=== PATIENT | male | born 1970 | race Caucasian/White ===

== ENCOUNTER 2016-12-19 10:15 | Emergency (ER) | payer OTHER ==
[2016-12-19 10:19] VITALS: RESP 18; BMI 28.2
--- NOTE | 2016-12-19 10:54 | C.PDOC ---
History Of Present Illness 46 year old patient, with a past medical history of chronic kidney disease, hypercholesterolemia, and kidney stones, presents to the ED complaining of left flank pain for the past 3 days. Patient also complains of dysuria. He denies any fever, chills, or vomiting. Patient notes he was sent here for further evaluation by his PMD. Time Seen by Provider: 12/19/16 10:46 Chief Complaint (Nursing): Back Pain History Per: Patient History/Exam Limitations: no limitations Onset/Duration Of Symptoms: Days (3) Current Symptoms Are (Timing): Still Present Quality Of Discomfort: "Pain" Severity: Mild Pain Scale Rating Of: 3 Associated Symptoms: None Exacerbating Factor(s): Nothing Recent travel outside of the [place]: No Past Medical History Reviewed: Historical Data, Nursing Documentation, Vital Signs Vital Signs: Last Vital Signs Temp 98.7 F 12/19/16 13:32 Pulse 63 12/19/16 13:32 Resp 18 12/19/16 13:32 BP 123/73 12/19/16 13:32 Pulse Ox 99 12/20/16 11:15 - Medical History PMH: Hypercholesterolemia, Kidney Stones, Chronic Kidney Disease - [facility] Procedures APPLICATION OF SPLINT (07/06/13) OTHER LOCAL DESTRUC SKIN (05/05/13) Family History: States: Unknown Family Hx - Social History Hx Tobacco Use: No Hx Alcohol Use: No Hx Substance Use: No - Immunization History Hx Tetanus Toxoid Vaccination: No Hx Influenza Vaccination: Yes (2016) Hx Pneumococcal Vaccination: No Review Of Systems Except As Marked, All Systems Reviewed And Found Negative. Constitutional: Negative for: Fever, Chills Gastrointestinal: Negative for: Vomiting Genitourinary: Positive for: Dysuria Musculoskeletal: Positive for: Other (left flank pain) Physical Exam - Physical Exam Appears: Non-toxic, No Acute Distress Skin: Warm, Dry Head: Atraumatic, Normacephalic Eye(s): bilateral: Normal Inspection, PERRL, EOMI Neck: Normal ROM, Supple Chest: Symmetrical Cardiovascular: Rhythm Regular Respiratory: Normal Breath Sounds, No Rales, No Rhonchi, No Wheezing Gastrointestinal/Abdominal: Soft, No Tenderness, No Guarding, No Rebound Back: CVA Tenderness (left), No Vertebral Tenderness, No Paraspinal Tenderness Extremity: Normal ROM Neurological/Psych: Oriented x3, Normal Speech, Normal Cognition, Normal Motor, Normal Sensation Gait: Steady ED Course And Treatment - Laboratory Results Result Diagrams: 12/19/16 10:59 12/19/16 10:59 O2 Sat by Pulse Oximetry: 99 (room air) Pulse Ox Interpretation: Normal - CT Scan/US Abdomen/Pelvis CT Other Rad Studies (CT/US): Read By Radiologist (Anai Duque MD), Radiology Report Reviewed CT/US Interpretation: PROCEDURE: CT Abdomen and Pelvis without Oral or IV contrast. HISTORY: left flank pain, hx kidney stones. COMPARISON: None. TECHNIQUE: Contiguous axial images of the abdomen and pelvis. No oral or IV contrast administered. Coronal and Sagittal reformats generated and reviewed. Radiation dose: Total exam DLP = 758.51 mGy-cm. This CT exam was performed using one or more of the following dose reduction techniques: Automated exposure control, adjustment of the mA and/or kV according to patient size, and/ or use of iterative reconstruction technique. FINDINGS: There is limited evaluation of the solid organs without the administration of IV contrast. LOWER THORAX: No visible consolidation, pleural effusion, or pneumothorax. LIVER: Unremarkable unenhanced appearance. GALLBLADDER AND BILE DUCTS: Unremarkable unenhanced appearance. PANCREAS: Unremarkable unenhanced appearance. SPLEEN: Unremarkable unenhanced appearance. ADRENALS: Unremarkable unenhanced appearance. KIDNEYS AND URETERS: No hydronephrosis or obstructing renal calculus. Nonobstructing 2 mm right lower pole renal calculus. BLADDER: The urinary bladder appears unremarkable. REPRODUCTIVE: Unremarkable. APPENDIX: Dilated appendix measuring up to approximately 9 mm in diameter. No significant periappendiceal inflammatory changes evident. BOWEL: The stomach is nondistended. Lack of oral contrast limits evaluation for bowel pathology. The bowel loops appear within normal limits of caliber without evidence of intestinal obstruction. PERITONEUM: No significant free fluid. No definite free air. LYMPH NODES: No bulky lymphadenopathy identified. VASCULATURE: No aortic aneurysm. BONES: No acute osseous abnormality is detected. OTHER FINDINGS: Tiny fat containing umbilical hernia. IMPRESSION: Dilated appendix measuring up to 9 mm in diameter. No significant periappendiceal inflammatory changes. Correlate with physical exam as well as white count in order to assess for possibility of appendicitis. Progress Note: Plan: Abdomen/Pelvic CT, Labs Medical Decision Making Medical Decision Making: pt with no abdominal pain on exam, soft, nd, nt. pt to be given results of ct scan and labs, f/u pmd and advise to return to ER josé miguel if pain worsens, fever develops, nausea, vomiting, diarrhea or any other concerns. pt declines iv fluids, po or iv pain medication for taoist reasons. Disposition Counseled Patient/Family Regarding: Studies Performed, Diagnosis, Need For Followup - Disposition Referrals: Dalton Holland Jr., MD [Staff Provider] - Kashmir Lucero MD [Staff Provider] - Disposition: HOME/ ROUTINE Disposition Time: 13:30 Condition: STABLE Additional Instructions: Follow up with Dr Lucero and also with Dr Theodore (urology) in the next few days. Return to ER immediately for any worse pain, fever, chills, nausea, vomiting or any other concerns. Instructions: Acute Hematuria (ED), Acute Abdominal Pain (ED), Abdominal Pain ( ED) Forms: General Discharge Instructions - Clinical Impression Clinical Impression: Abdominal pain, Hematuria - [place] / [employer] / Resident Statement MD/DO has reviewed & agrees with the documentation as recorded. - Scribe Statement The provider has reviewed the documentation as recorded by the Scribe Elaine Pablo All medical record entries made by the Scribe were at my direction and personally dictated by me. I have reviewed the chart and agree that the record accurately reflects my personal performance of the history, physical exam, medical decision making, and the department course for this patient. I have also personally directed, reviewed, and agree with the discharge instructions and disposition.
[2016-12-19 11:03] LABS: BASO # 0.1 K/uL (0.0-0.2); BASO % 1.6 % (0.0-2.0); EOS # 0.2 K/uL (0.0-0.7); EOS % 4.1 % (0.0-4.0); HEMATOCRIT 45.6 % (35.0-51.0); LYMPH # 1.5 K/uL (1.0-4.3); LYMPH % 28.9 % (20.0-40.0); MEAN CELL VOLUME 80.6 fL (80.0-94.0); MEAN CORPUSCULAR HEMOGLOBIN 27.2 pg (27.0-31.0); MEAN CORPUSCULAR HGB CONC 33.7 g/dL (33.0-37.0); MEAN PLATELET VOLUME 10.2 fL (7.2-11.7); MONO # 0.4 K/uL (0.0-0.8); MONO % 6.9 % (0.0-10.0); RED CELL DISTRIBUTION WIDTH 12.9 % (11.5-14.5); WHITE BLOOD COUNT 5.2 K/uL (4.8-10.8)
[2016-12-19 11:10] LABS: RBC URINE 14 /hpf (0-3); URINE BILIRUBIN NEGATIVE (NEGATIVE); URINE BLOOD 2+ (NEGATIVE); URINE COLOR Yellow (YELLOW); URINE GLUCOSE (UA) NORMAL (Normal); URINE KETONE NEGATIVE (NEGATIVE); URINE LEUKOCYTE ESTERASE NEG Leu/uL (Negative); URINE PROTEIN NEGATIVE (NEGATIVE); URINE UROBILINOGEN NORMAL mg/dL (0.2-1.0); WBC URINE < 1 /hpf (0-5)
[2016-12-19 11:18] LABS: CHLORIDE 99 mmol/L (98-107); POTASSIUM 4.3 mmol/L (3.6-5.2); SODIUM 136 mmol/L (132-148)
[2016-12-19 11:20] LABS: ALB/GLOB RATIO 1.4 (1.0-2.1); ALKALINE PHOSPHATASE 53 U/L (38-126); ALT/SGPT 49 U/L (21-72); AST/SGOT 30 U/L (17-59); BILIRUBIN,TOTAL 0.6 mg/dL (0.2-1.3); BLOOD UREA NITROGEN 17 mg/dL (9-20); CARBON DIOXIDE 25 mmol/L (22-30); GFR AFRICAN-AMERICAN > 60; TOTAL PROTEIN 7.4 g/dL (6.3-8.3)
[2016-12-19 11:21] LABS: CALCIUM 8.5 mg/dl (8.6-10.4); GLUCOSE,RANDOM 106 mg/dL (75-110)
--- NOTE | 2016-12-19 12:09 | CT ---
PROCEDURE: CT Abdomen and Pelvis without Oral or IV contrast. HISTORY: left flank pain, hx kidney stones COMPARISON: None. TECHNIQUE: Contiguous axial images of the abdomen and pelvis. No oral or IV contrast administered. Coronal and Sagittal reformats generated and reviewed. Radiation dose: Total exam DLP = 758.51 mGy-cm. This CT exam was performed using one or more of the following dose reduction techniques: Automated exposure control, adjustment of the mA and/or kV according to patient size, and/or use of iterative reconstruction technique. FINDINGS: There is limited evaluation of the solid organs without the administration of IV contrast. LOWER THORAX: No visible consolidation, pleural effusion, or pneumothorax. LIVER: Unremarkable unenhanced appearance. GALLBLADDER AND BILE DUCTS: Unremarkable unenhanced appearance. PANCREAS: Unremarkable unenhanced appearance. SPLEEN: Unremarkable unenhanced appearance. ADRENALS: Unremarkable unenhanced appearance. KIDNEYS AND URETERS: No hydronephrosis or obstructing renal calculus. Nonobstructing 2 mm right lower pole renal calculus. BLADDER: The urinary bladder appears unremarkable. REPRODUCTIVE: Unremarkable. APPENDIX: Dilated appendix measuring up to approximately 9 mm in diameter. No significant periappendiceal inflammatory changes evident. BOWEL: The stomach is nondistended. Lack of oral contrast limits evaluation for bowel pathology. The bowel loops appear within normal limits of caliber without evidence of intestinal obstruction. PERITONEUM: No significant free fluid. No definite free air. LYMPH NODES: No bulky lymphadenopathy identified. VASCULATURE: No aortic aneurysm. BONES: No acute osseous abnormality is detected. OTHER FINDINGS: Tiny fat containing umbilical hernia. IMPRESSION: Dilated appendix measuring up to 9 mm in diameter. No significant periappendiceal inflammatory changes. Correlate with physical exam as well as white count in order to assess for possibility of appendicitis.
[2016-12-19 12:30] VITALS: O2SAT 99
[2016-12-19 13:33] VITALS: BP 123/73; PULSE 63; TEMP 98.7
== END 2016-12-19 13:45 | disposition home or self-care (01) ==
LOC: C.ER 10:15
DX: R10.9 Unspecified abdominal pain (principal); R31.9 Hematuria, unspecified

== ENCOUNTER 2018-05-17 14:44 | Emergency (ER) | payer OTHER ==
[2018-05-17 14:45] VITALS: BMI 29.0
[2018-05-17] MEDS ORDERED: Sodium Chloride 0.9% 1,000 ML IV ONE (15:09)
[2018-05-17 15:29] LABS: BASO # 0.1 K/uL (0.0-0.2); BASO % 1.3 % (0.0-2.0); EOS # 0.1 K/uL (0.0-0.7); EOS % 2.5 % (0.0-4.0); LYMPH % 32.1 % (20.0-40.0); MEAN CELL VOLUME 81.1 fL (80.0-94.0); MEAN CORPUSCULAR HEMOGLOBIN 27.6 pg (27.0-31.0); MEAN CORPUSCULAR HGB CONC 34.1 g/dL (33.0-37.0); MEAN PLATELET VOLUME 10.5 fL (7.2-11.7); MONO # 0.5 K/uL (0.0-0.8); MONO % 7.6 % (0.0-10.0); NEUT # 3.4 K/uL (1.8-7.0); NEUT % 56.5 % (50.0-75.0); NRBC % 0.1 % (0.0-2.0); RBC 5.42 Mil/uL (4.40-5.90); RED CELL DISTRIBUTION WIDTH 13.3 % (11.5-14.5); WHITE BLOOD COUNT 6.1 K/uL (4.8-10.8)
[2018-05-17 15:51] LABS: BLOOD UREA NITROGEN 14 mg/dL (9-20); CALCIUM 9.4 mg/dl (8.6-10.4); GFR NON-AFRICAN AMERICAN > 60
[2018-05-17 16:01] LABS: ALB/GLOB RATIO 1.5 (1.0-2.1); ALBUMIN 4.6 g/dL (3.5-5.0); ALT/SGPT 45 U/L (21-72); AST/SGOT 58 U/L (17-59); CK-MB 3.39 ng/mL (0.0-3.38)
--- NOTE | 2018-05-17 16:10 | CT ---
Date of service: 05/17/2018 PROCEDURE: CT HEAD WITHOUT CONTRAST. HISTORY: headache, persistent left ear pain, dizziness COMPARISON: None available. TECHNIQUE: Axial computed tomography images were obtained through the head/brain without intravenous contrast. Radiation dose: Total exam DLP = 1092.34 mGy-cm. This CT exam was performed using one or more of the following dose reduction techniques: Automated exposure control, adjustment of the mA and/or kV according to patient size, and/or use of iterative reconstruction technique. FINDINGS: HEMORRHAGE: No intracranial hemorrhage. BRAIN: No mass effect or edema. No atrophy or chronic microvascular ischemic changes.Normal rooney-white matter differentiation and density are appreciated throughout the cerebrum and cerebellum with the brainstem appearing unremarkable as well. There is no mass effect. There is no suspicious extra-axial fluid collection and the midline brain anatomy appears diffusely unremarkable. VENTRICLES: Unremarkable. No hydrocephalus. CALVARIUM: Unremarkable. PARANASAL SINUSES: Unremarkable as visualized. No significant inflammatory changes. MASTOID AIR CELLS: Unremarkable as visualized. No inflammatory changes. OTHER FINDINGS: None. IMPRESSION: Unremarkable noncontrast CT of the Head.
--- NOTE | 2018-05-17 16:26 | C.PDOC ---
History Of Present Illness 48 y/o male presents to ED complaining of left-sided chest pain that started 2 hours prior to arrival. States that while he was walking, he felt a squeezing pain but did not radiate anywhere. Patient also complains of left ear pain and dizziness that is both room spinning and lightheadedness. Patient was recently seen by Dr. Grant who prescribed him antibiotics and Claritin, but patient still has ear pain. Denies SOB, visual changes, facial droop, slurred speech, extremity weakness, or gait changes. Time Seen by Provider: 05/17/18 14:46 Chief Complaint (Nursing): Chest Pain History Per: Patient History/Exam Limitations: no limitations Onset/Duration Of Symptoms: Hrs Current Symptoms Are (Timing): Still Present Past Medical History Reviewed: Historical Data, Nursing Documentation, Vital Signs Vital Signs: Last Vital Signs Temp 97.3 F L 05/17/18 14:45 Pulse 75 05/17/18 14:45 Resp 20 05/17/18 14:45 BP 130/81 05/17/18 14:45 Pulse Ox 99 05/17/18 14:45 - Medical History PMH: Gastritis, HTN, Hypercholesterolemia, Kidney Stones, Chronic Kidney Disease Surgical History: Endoscopy Denies: Pacemaker - [facility] Procedures APPLICATION OF SPLINT (07/06/13) OTHER LOCAL DESTRUC SKIN (05/05/13) Family History: States: No Known Family Hx - Social History Hx Tobacco Use: No Hx Alcohol Use: No Hx Substance Use: No - Immunization History Hx Tetanus Toxoid Vaccination: No Hx Influenza Vaccination: Yes (2017) Hx Pneumococcal Vaccination: No Review Of Systems Eyes: Negative for: Vision Change ENT: Positive for: Ear Pain (left) Cardiovascular: Positive for: Chest Pain Respiratory: Negative for: Shortness of Breath Neurological: Positive for: Dizziness. Negative for: Weakness, Change in Speech, Other (Facial droop) Physical Exam - Physical Exam Appears: Non-toxic, No Acute Distress Skin: Warm, Dry Head: Atraumatic Eye(s): bilateral: Normal Inspection, PERRL, EOMI Ear(s): Bilateral: Normal Oral Mucosa: Moist Neck: Supple Cardiovascular: Rhythm Regular, No Murmur Respiratory: Normal Breath Sounds, No Rales, No Rhonchi, No Wheezing Gastrointestinal/Abdominal: Soft, No Tenderness Neurological/Psych: Oriented x3, Normal Speech, Other (No focal deficits) ED Course And Treatment - Laboratory Results Result Diagrams: 05/17/18 15:21 05/17/18 15:21 ECG Rhythm: Sinus Rhythm (Normal) Interpretation Of ECG: Normal axis, no acute ST/T wave changes. Rate From EC O2 Sat by Pulse Oximetry: 99 (RA) Pulse Ox Interpretation: Normal - CT Scan/US CT Head Other Rad Studies (CT/US): Read By Radiologist, Radiology Report Reviewed CT/US Interpretation: FINDINGS: HEMORRHAGE: No intracranial hemorrhage. BRAIN: No mass effect or edema. No atrophy or chronic microvascular ischemic changes.Normal rooney-white matter differentiation and density are appreciated throughout the cerebrum and cerebellum with the brainstem appearing unremarkable as well. There is no mass effect. There is no suspicious extra-axial fluid collection and the midline brain anatomy appears diffusely unremarkable. VENTRICLES: Unremarkable. No hydrocephalus. CALVARIUM: Unremarkable. PARANASAL SINUSES: Unremarkable as visualized. No significant inflammatory changes. MASTOID AIR CELLS: Unremarkable as visualized. No inflammatory changes. OTHER FINDINGS: None. IMPRESSION: Unremarkable noncontrast CT of the Head. Progress Note: CT Head and labs ordered. IV fluids administered. Disposition Counseled Patient/Family Regarding: Studies Performed, Diagnosis, Need For Followup, Rx Given - Disposition Referrals: Ildefonso Lucero MD [Medical Doctor] - Hubert Grant MD [Staff Provider] - Disposition: HOME/ ROUTINE Disposition Time: 18:25 Condition: STABLE Additional Instructions: FOLLOW UP WITH YOUR DOCTOR IN 1-2 DAYS, AND WITH ENT SPECIALIST WITHIN 1 WEEK RETURN TO ER IF SYMPTOMS WORSEN Prescriptions: Ibuprofen [Motrin Tab] 600 mg PO Q6 PRN #30 tab PRN Reason: fever/pain Instructions: Chest Pain That Is Not Caused by the Heart (DC) Forms: [employer] (Sinhala) Print Language: SOUTH SUDANESE - Clinical Impression Clinical Impression: Non-cardiac chest pain, Chronic left ear pain, Dizziness - Scribe Statement The provider has reviewed the documentation as recorded by the Frankie Brian Provider Attestation: All medical record entries made by the Frankie were at my direction and personally dictated by me. I have reviewed the chart and agree that the record accurately reflects my personal performance of the history, physical exam, medical decision making, and the department course for this patient. I have also personally directed, reviewed, and agree with the discharge instructions and disposition.
[2018-05-17 16:33] VITALS: RESP 18
[2018-05-17 18:03] VITALS: BP 123/74; PULSE 72; TEMP 98.4
[2018-05-17 18:21] LABS: CK-MB 3.06 ng/mL (0.0-3.38)
[2018-05-17 18:29] VITALS: O2SAT 99
--- NOTE | 2018-05-18 12:45 | CARD ---
APPROVED REPORT Date of service: 05/17/2018 EKG Measurement Heart [id number] <Conclusion> Normal sinus rhythm Normal ECG
== END 2018-05-17 18:41 | disposition home or self-care (01) ==
LOC: C.ER 14:44
DX: R07.89 Other chest pain (principal); R42 Dizziness and giddiness; H92.02 Otalgia, left ear; E78.00 Pure hypercholesterolemia, unspecified; I12.9 Hypertensive chronic kidney disease with stage 1 through stage 4 chronic kidney disease, or unspecified chronic kidney disease; N18.9 Chronic kidney disease, unspecified; Z87.442 Personal history of urinary calculi

== ENCOUNTER 2018-07-17 03:39 | Observation (INO) | payer OTHER ==
[2018-07-17 03:39] VITALS: BMI 29.0
--- NOTE | 2018-07-17 03:50 | C.PDOC ---
History Of Present Illness 48 year old male presents to the ED c/o epigastric abdominal pain associated with nausea since yesterday. Patient reports pain is sharp, cramping occasional burning. Patient denies fever, chills, vomit, diarrhea, dysuria, hematuria, back pain, rash. Time Seen by Provider: 07/17/18 03:49 History Per: Patient History/Exam Limitations: no limitations Onset/Duration Of Symptoms: Days Current Symptoms Are (Timing): Still Present Context: Other Severity: Moderate Pain Scale Rating Of: 4 Location Of Pain/Discomfort: Epigastric Radiation Of Pain To:: None Quality Of Discomfort: Dull, Aching Associated Symptoms: denies: Fever, Chills, Nausea Exacerbating Factors: denies: Cough Alleviating Factors: None Last Bowel Movement: Today Recent travel outside of the [place]: No Additional History Per: Patient Past Medical History Reviewed: Historical Data, Nursing Documentation, Vital Signs - Medical History PMH: Gastritis, HTN, Hypercholesterolemia, Kidney Stones, Chronic Kidney Disease Surgical History: Endoscopy Denies: Pacemaker - [facility] Procedures APPLICATION OF SPLINT (07/06/13) OTHER LOCAL DESTRUC SKIN (05/05/13) Family History: States: No Known Family Hx - Social History Hx Tobacco Use: No Hx Alcohol Use: No Hx Substance Use: No - Immunization History Hx Tetanus Toxoid Vaccination: No Hx Influenza Vaccination: Yes (2017) Hx Pneumococcal Vaccination: No Review Of Systems Constitutional: Negative for: Fever, Chills Cardiovascular: Negative for: Chest Pain Respiratory: Negative for: Shortness of Breath Gastrointestinal: Positive for: Abdominal Pain. Negative for: Nausea, Vomiting Genitourinary: Negative for: Dysuria Musculoskeletal: Negative for: Back Pain Skin: Negative for: Rash Neurological: Negative for: Weakness Psych: Positive for: Anxiety Physical Exam - Physical Exam Appears: Non-toxic Skin: Warm, Dry Oral Mucosa: Moist Chest: Symmetrical Cardiovascular: Rhythm Regular Respiratory: No Rales, No Rhonchi, No Wheezing Gastrointestinal/Abdominal: Soft, Tenderness (midepigastric), Distention Back: Normal Inspection Extremity: Normal ROM Extremity: Bilateral: Atraumatic Neurological/Psych: Oriented x3 Gait: Steady ED Course And Treatment - Laboratory Results Result Diagrams: 07/17/18 04:10 07/17/18 04:10 O2 Sat by Pulse Oximetry: 97 (ON RA) Pulse Ox Interpretation: Normal - CT Scan/US CT abd/pelvis Other Rad Studies (CT/US): Read By Radiologist, Radiology Report Reviewed CT/US Interpretation: CT SCAN OF THE ABDOMEN AND PELVIS WITH CONTRAST. CLINICAL HISTORY: Mid epigastric pain. TECHNIQUE: Multiple axial and coronal CT images were obtained through the abdomen and pelvis after administration of intravenous contrast material. COMMENTS: Appendix is enlarged measuring 1.2 cm. Diffuse thickening and enhancement of the wall of the appendix. Prominent surrounding inflammatory fat stranding. The liver is of uniform attenuation without mass or defect. There is no intra or extrahepatic biliary ductal dilatation. The spleen is normal. The gallbladder is within normal limits. The pancreas is of normal contour and attenuation characteristics. There is no evidence of adrenal mass. Both kidneys demonstrate prompt and equal nephrograms. The kidneys are normal in size, shape and configuration. There is no evidence of renal or ureteral mass. No renal or ureteral calculi are identified. There is no hydroureter or hydronephrosis. There is no bowel wall thickening. No evidence for small or large bowel obstruction. There is no evidence of abdominal ascites or lymphadenopathy. There is no evidence of intrinsic or extrinsic bladder mass. There is no pelvic ascites or lymphadenopathy. Images of the lung bases show no evidence of pleural or parenchymal mass. There are no pleural effusions. The bony structures are free of lytic or blastic lesions. Bilateral basilar subsegmental atelectatic pulmonary changes. IMPRESSION: Uncomplicated acute appendicitis. Thank you for your kind referral of this patient. . Electronically signed on Jul 17, 2018 6:20:28 AM EST by: Ana Escalante M.D., Certified by JOSE, MSK, Neuroradiology Progress Note: Plan: - Labs. - Protonix 40 mg IVP. - IV fluids. - Toradol 30 mg IVP. - Zofran 4 mg IVP. - UA Disposition Counseled Patient/Family Regarding: Studies Performed, Diagnosis, Need For Followup - Disposition Referrals: Babatunde Lyman MD [Staff Provider] - Disposition: AGAINST MEDICAL ADVICE Disposition Time: 03:49 Condition: FAIR Instructions: Appendicitis in Adults - Clinical Impression Clinical Impression: Acute appendicitis - Scribe Statement The provider has reviewed the documentation as recorded by the Scribe Jarod Cortez All medical record entries made by the Scribe were at my direction and personally dictated by me. I have reviewed the chart and agree that the record accurately reflects my personal performance of the history, physical exam, medical decision making, and the department course for this patient. I have also personally directed, reviewed, and agree with the discharge instructions and disposition. Physician Patient Turnover Patient Signed Over To: Anita Paez (') Handoff Comments: pending disposition
[2018-07-17] MEDS ORDERED: Sodium Chloride 0.9% 1,000 ML IV ONE (03:53)
[2018-07-17 04:14] LABS: BASO # 0.1 K/uL (0.0-0.2); BASO % 1.4 % (0.0-2.0); EOS # 0.2 K/uL (0.0-0.7); EOS % 2.4 % (0.0-4.0); HEMOGLOBIN 15.1 g/dL (12.0-18.0); LYMPH # 1.6 K/uL (1.0-4.3); LYMPH % 23.1 % (20.0-40.0); MEAN CELL VOLUME 81.9 fL (80.0-94.0); MEAN CORPUSCULAR HEMOGLOBIN 27.9 pg (27.0-31.0); MEAN CORPUSCULAR HGB CONC 34.1 g/dL (33.0-37.0); MEAN PLATELET VOLUME 9.9 fL (7.2-11.7); MONO # 0.5 K/uL (0.0-0.8); MONO % 7.3 % (0.0-10.0); NEUT # 4.6 K/uL (1.8-7.0); NEUT % 65.8 % (50.0-75.0); RBC 5.42 Mil/uL (4.40-5.90); RED CELL DISTRIBUTION WIDTH 13.5 % (11.5-14.5)
[2018-07-17 04:22] LABS: PROTHROMBIN TIME 10.9 SECONDS (9.7-12.2); URINE BILIRUBIN NEGATIVE (NEGATIVE); URINE CLARITY Clear (Clear); URINE COLOR Straw (YELLOW); URINE GLUCOSE (UA) NORMAL (Normal); URINE LEUKOCYTE ESTERASE NEG Leu/uL (Negative); URINE PROTEIN NEGATIVE (NEGATIVE); URINE UROBILINOGEN NORMAL mg/dL (0.2-1.0)
[2018-07-17 04:24] LABS: URINE BLOOD NEGATIVE (NEGATIVE)
[2018-07-17 04:30] LABS: ALB/GLOB RATIO 1.6 (1.0-2.1); ALBUMIN 4.3 g/dL (3.5-5.0); ALT/SGPT 60 U/L (21-72); AST/SGOT 44 U/L (17-59); BLOOD UREA NITROGEN 11 mg/dL (9-20); CALCIUM 8.8 mg/dl (8.6-10.4); GFR NON-AFRICAN AMERICAN > 60; LIPASE 49 U/L (23-300)
[2018-07-17] MEDS ORDERED: Iodixanol 320 MG/ML 100 ML BOTTLE IV ONE (05:13)
[2018-07-17] MEDS ORDERED: Piperacillin/Tazobact 3.375 GM in Sodium Chloride 100 ML IVPB STA (06:24)
[2018-07-17] MEDS ORDERED: Piperacillin/Tazobact 3.375 gm 100 ML IVPB ONE (06:36)
--- NOTE | 2018-07-17 07:31 | CP.PCM.HP ---
History of Present Illness - History of Present Illness History of Present Illness: General Surgery Consult note for Dr. Lyman This is a 48M with a PMH of HTN and HLD, who presents with one day of abdominal pain. He reports that it started yesterday and he has been going to the bathroom often since it started however it is not diarrhea, or abnormal in color or character. He reports nausea but no vomiting. He denies any fevers or chills at home. This is the first time this has happened. Nothing makes it better or worse. He denies any SOB or chest pain, or any other systemic symptoms. CT in the ED was significant for an acute appendicitis. PMH: HTN, HLD PSH: Denies ALL: Cipro Social: Denies vices Present on Admission - Present on Admission Any Indicators Present on Admission: No Review of Systems - Review of Systems Review of Systems: 12 point review of symptoms conducted and negative except for lower abdominal pain. Past Patient History - Past Medical History & Family History Past Medical History?: Yes - Past Social History Smoking Status: Never Smoked - CARDIAC Hx Hypercholesterolemia: Yes Hx Hypertension: Yes Hx Pacemaker: No - PULMONARY Hx Respiratory Disorders: No - NEUROLOGICAL Hx Neurological Disorder: No - HEENT Hx HEENT Problems: No - RENAL Hx Chronic Kidney Disease: Yes Hx Kidney Stones: Yes - ENDOCRINE/METABOLIC Hx Endocrine Disorders: No - HEMATOLOGICAL/ONCOLOGICAL Hx Blood Disorders: No Hx Blood Transfusions: No - INTEGUMENTARY Hx Dermatological Problems: Yes Other/Comment: WARTS ON FEET - MUSCULOSKELETAL/RHEUMATOLOGICAL Hx Musculoskeletal Disorders: No - GASTROINTESTINAL Hx Gastritis: Yes - GENITOURINARY/GYNECOLOGICAL Hx Genitourinary Disorders: No - PSYCHIATRIC Hx Substance Use: No - SURGICAL HISTORY Hx Surgeries: Yes Other/Comment: WARTS REMOVED FROM FEET - ANESTHESIA Hx Anesthesia: Yes Hx Anesthesia Reactions: No Hx Malignant Hyperthermia: No Meds Allergies/Adverse Reactions: Allergies Allergy/AdvReac Type Severity Reaction Status Date / Time ciprofloxacin Allergy RASH Verified 07/17/18 03:53 Physical Exam - Constitutional Appears: Non-toxic, No Acute Distress - Head Exam Head Exam: ATRAUMATIC, NORMOCEPHALIC - Eye Exam Eye Exam: EOMI, Normal appearance - ENT Exam ENT Exam: Mucous Membranes Moist - Respiratory Exam Respiratory Exam: NORMAL BREATHING PATTERN - Cardiovascular Exam Cardiovascular Exam: +S1, +S2 - GI/Abdominal Exam GI & Abdominal Exam: Soft, Tenderness. absent: Guarding, Hernia, Rebound, Rigid Additional comments: + Rovsing sign, + Mcburny point tenderness - Neurological Exam Neurological exam: Alert, Oriented x3 - Psychiatric Exam Psychiatric exam: Normal Affect, Normal Mood - Skin Skin Exam: Dry, Intact Results - Vital Signs Recent Vital Signs: Last Vital Signs Temp 98.4 F 07/17/18 07:16 Pulse 72 07/17/18 07:16 Resp 17 07/17/18 07:16 BP 134/80 07/17/18 07:16 Pulse Ox 98 07/17/18 07:16 - Labs Result Diagrams: 07/17/18 04:10 07/17/18 04:10 Labs: Laboratory Results - last 24 hr 07/17/18 07/17/18 07/17/18 04:10 04:10 04:10 WBC 7.0 RBC 5.42 Hgb 15.1 Hct 44.4 MCV 81.9 MCH 27.9 MCHC 34.1 RDW 13.5 Plt Count 180 MPV 9.9 Neut % (Auto) 65.8 Lymph % (Auto) 23.1 [place] % (Auto) 7.3 Eos % (Auto) 2.4 Baso % (Auto) 1.4 Neut # (Auto) 4.6 Lymph # (Auto) 1.6 [place] # (Auto) 0.5 Eos # (Auto) 0.2 Baso # (Auto) 0.1 PT 10.9 INR 1.0 APTT 33 Sodium Potassium Chloride Carbon Dioxide Anion Gap BUN Creatinine Est GFR ( Amer) Est GFR (Non-Af Amer) Random Glucose Calcium Total Bilirubin AST ALT Alkaline Phosphatase Total Protein Albumin Globulin Albumin/Globulin Ratio Lipase Urine Color Straw Urine Clarity Clear Urine pH 6.0 Ur Specific [place] 1.009 Urine Protein Negative Urine Glucose (UA) Normal Urine Ketones Negative Urine Blood Negative Urine Nitrate Negative Urine Bilirubin Negative Urine Urobilinogen Normal Ur Leukocyte Esterase Neg Urine WBC (Auto) < 1 Urine RBC (Auto) 4 H 07/17/18 04:10 WBC RBC Hgb Hct MCV MCH MCHC RDW Plt Count MPV Neut % (Auto) Lymph % (Auto) [place] % (Auto) Eos % (Auto) Baso % (Auto) Neut # (Auto) Lymph # (Auto) [place] # (Auto) Eos # (Auto) Baso # (Auto) PT INR APTT Sodium 137 Potassium 3.9 Chloride 103 Carbon Dioxide 26 Anion Gap 12 BUN 11 Creatinine 0.9 Est GFR ( Amer) > 60 Est GFR (Non-Af Amer) > 60 Random Glucose 103 Calcium 8.8 Total Bilirubin 0.5 AST 44 ALT 60 Alkaline Phosphatase 69 Total Protein 7.0 Albumin 4.3 Globulin 2.7 Albumin/Globulin Ratio 1.6 Lipase 49 Urine Color Urine Clarity Urine pH Ur Specific [place] Urine Protein Urine Glucose (UA) Urine Ketones Urine Blood Urine Nitrate Urine Bilirubin Urine Urobilinogen Ur Leukocyte Esterase Urine WBC (Auto) Urine RBC (Auto) - Imaging and Cardiology CT scan - abdomen Status: Image reviewed by me CT scan - pelvis Status: Image reviewed by me Assessment & Plan - Assessment and Plan (Free Text) Assessment: 48M with uncomplicated acute appendicitis NPO IVF IV ABX Plan for OR for appendectomy Further recs per Dr. Nura Frost PGY3
[2018-07-17] MEDS ORDERED: HYDROmorphone 0.5 mg/0.5 ml ISec IVP PRN ×3 (07:36→16:22)
[2018-07-17] MEDS ORDERED: Lactated Ringer's 1,000 ML ONE (08:05)
[2018-07-17] MEDS: Lactated Ringer's 1,000 ML IV SCH ×2 (08:10→13:33)
--- NOTE | 2018-07-17 10:41 | CT ---
Date of service: 07/17/2018 PROCEDURE: CT Abdomen and Pelvis with contrast HISTORY: midepigastric pain COMPARISON: CT abdomen and pelvis without contrast performed 12/19/16 TECHNIQUE: Contrast dose: 100 mL Visipaque 320 IV Radiation dose: Total exam DLP = 1267.54 mGy-cm. This CT exam was performed using one or more of the following dose reduction techniques: Automated exposure control, adjustment of the mA and/or kV according to patient size, and/or use of iterative reconstruction technique. FINDINGS: LOWER THORAX: Mild bibasilar atelectasis. No visible pleural effusion or pneumothorax. LIVER: Unremarkable. GALLBLADDER AND BILE DUCTS: Unremarkable. PANCREAS: Unremarkable. SPLEEN: Unremarkable. ADRENALS: Unremarkable. KIDNEYS AND URETERS: The kidneys enhance symmetrically. No hydronephrosis or obstructing calculus identified. VASCULATURE: No aortic aneurysm. No atherosclerotic calcification or mural plaque present. BOWEL: Stomach is nondistended. Lack of oral contrast limits evaluation for bowel pathology. Bowel loops appear within normal limits of caliber without evidence of obstruction. APPENDIX: The mid to distal portions of the appendix appears dilated measuring approximately 1.2 cm with associated inflammatory stranding and wall enhancement; appearance consistent with acute appendicitis. PERITONEUM: No significant free fluid. No definite free air. LYMPH NODES: No bulky adenopathy identified. Sub cm mesenteric and retroperitoneal lymph nodes, nonspecific. BLADDER: Unremarkable. REPRODUCTIVE: Unremarkable. BONES: No acute osseous abnormality is detected. OTHER FINDINGS: None. IMPRESSION: The mid to distal portions of the appendix appears dilated measuring approximately 1.2 cm with associated inflammatory stranding and wall enhancement; appearance consistent with acute appendicitis. Preliminary impression was provided by [facility] ER aware of the above findings at the time of final dictation.
[2018-07-17] MEDS: Piperacillin/Tazobact 3.375 GM in Sodium Chloride 100 ML IVPB SCH ×2 (13:33→18:47)
[2018-07-17] MEDS ORDERED: Midazolam 2 MG/2 ML VIAL ONE (14:57)
[2018-07-17] MEDS ORDERED: Propofol 10 mg/ml Inj (20 ML) ONE ×2 (14:57→16:07)
[2018-07-17] MEDS ORDERED: Succinylcholine Chloride 20 mg/ml Syr (5 ml) IV ONE (15:16)
[2018-07-17] MEDS ORDERED: Neostigmine Methylsulfate 3mg/3ml Syringe IV ONE (15:16)
--- NOTE | 2018-07-17 16:17 | PCM.SURG1 ---
Surgeon's Initial Post Op Note - Surgeon's Notes Surgeon: Dr. Lyman Group Therapy Counselor: Dr. Cox PGY4 Type of Anesthesia: General Endo Pre-Operative Diagnosis: Acute Appendicitis Operative Findings: same Post-Operative Diagnosis: same Operation Performed: Laparoscopic Appendectomy Specimen/Specimens Removed: appendix Estimated Blood Loss: EBL {In ML}: 20 Blood Products Given: N/A Drains Used: No Drains Post-Op Condition: Good Date of Surgery/Procedure: 07/17/18 Time of Surgery/Procedure: 16:16
[2018-07-17] MEDS ORDERED: Lactated Ringer's 1,000 ML IV SCH (16:30)
[2018-07-17 19:46] VITALS: RESP 20
--- NOTE | 2018-07-17 20:26 | CP.PCM.DIS ---
Provider - Provider Date of Admission: 07/17/18 08:16 Attending physician: Babatunde Lyman MD Time Spent in preparation of Discharge (in minutes): 45 Hospital Course - Lab Results Lab Results: Most Recent Lab Values WBC 7.0 K/uL (4.8-10.8) 07/17/18 04:10 RBC 5.42 Mil/uL (4.40-5.90) 07/17/18 04:10 Hgb 15.1 g/dL (12.0-18.0) 07/17/18 04:10 Hct 44.4 % (35.0-51.0) 07/17/18 04:10 MCV 81.9 fL (80.0-94.0) 07/17/18 04:10 MCH 27.9 pg (27.0-31.0) 07/17/18 04:10 MCHC 34.1 g/dL (33.0-37.0) 07/17/18 04:10 RDW 13.5 % (11.5-14.5) 07/17/18 04:10 Plt Count 180 K/uL (130-400) 07/17/18 04:10 MPV 9.9 fL (7.2-11.7) 07/17/18 04:10 Neut % (Auto) 65.8 % (50.0-75.0) 07/17/18 04:10 Lymph % (Auto) 23.1 % (20.0-40.0) 07/17/18 04:10 [place] % (Auto) 7.3 % (0.0-10.0) 07/17/18 04:10 Eos % (Auto) 2.4 % (0.0-4.0) 07/17/18 04:10 Baso % (Auto) 1.4 % (0.0-2.0) 07/17/18 04:10 Neut # (Auto) 4.6 K/uL (1.8-7.0) 07/17/18 04:10 Lymph # (Auto) 1.6 K/uL (1.0-4.3) 07/17/18 04:10 [place] # (Auto) 0.5 K/uL (0.0-0.8) 07/17/18 04:10 Eos # (Auto) 0.2 K/uL (0.0-0.7) 07/17/18 04:10 Baso # (Auto) 0.1 K/uL (0.0-0.2) 07/17/18 04:10 PT 10.9 SECONDS (9.7-12.2) 07/17/18 04:10 INR 1.0 07/17/18 04:10 APTT 33 SECONDS (21-34) 07/17/18 04:10 Sodium 137 mmol/L (132-148) 07/17/18 04:10 Potassium 3.9 mmol/L (3.6-5.2) 07/17/18 04:10 Chloride 103 mmol/L (98-107) 07/17/18 04:10 Carbon Dioxide 26 mmol/L (22-30) 07/17/18 04:10 Anion Gap 12 (10-20) 07/17/18 04:10 BUN 11 mg/dL (9-20) 07/17/18 04:10 Creatinine 0.9 mg/dL (0.8-1.5) 07/17/18 04:10 Est GFR ( Amer) > 60 07/17/18 04:10 Est GFR (Non-Af Amer) > 60 07/17/18 04:10 Random Glucose 103 mg/dL (75-110) 07/17/18 04:10 Calcium 8.8 mg/dl (8.6-10.4) 07/17/18 04:10 Total Bilirubin 0.5 mg/dL (0.2-1.3) 07/17/18 04:10 AST 44 U/L (17-59) 07/17/18 04:10 ALT 60 U/L (21-72) 07/17/18 04:10 Alkaline Phosphatase 69 U/L (38-126) 07/17/18 04:10 Total Protein 7.0 g/dL (6.3-8.3) 07/17/18 04:10 Albumin 4.3 g/dL (3.5-5.0) 07/17/18 04:10 Globulin 2.7 gm/dL (2.2-3.9) 07/17/18 04:10 Albumin/Globulin Ratio 1.6 (1.0-2.1) 07/17/18 04:10 Lipase 49 U/L (23-300) 07/17/18 04:10 Urine Color Straw (YELLOW) 07/17/18 04:10 Urine Clarity Clear (Clear) 07/17/18 04:10 Urine pH 6.0 (5.0-8.0) 07/17/18 04:10 Ur Specific [place] 1.009 (1.003-1.030) 07/17/18 04:10 Urine Protein Negative mg/dL (NEGATIVE) 07/17/18 04:10 Urine Glucose (UA) Normal mg/dL (Normal) 07/17/18 04:10 Urine Ketones Negative mg/dL (NEGATIVE) 07/17/18 04:10 Urine Blood Negative (NEGATIVE) 07/17/18 04:10 Urine Nitrate Negative (NEGATIVE) 07/17/18 04:10 Urine Bilirubin Negative (NEGATIVE) 07/17/18 04:10 Urine Urobilinogen Normal mg/dL (0.2-1.0) 07/17/18 04:10 Ur Leukocyte Esterase Neg Edis/uL (Negative) 07/17/18 04:10 Urine WBC (Auto) < 1 /hpf (0-5) 07/17/18 04:10 Urine RBC (Auto) 4 /hpf (0-3) H 07/17/18 04:10 - Hospital Course Hospital Course: 48yo M with PMHx of HTN and HLD presents with acute appendicitis as confirmed by CT Abd/Pelvis. Patient was admitted to the hospital for obs and was taken to the OR and underwent laparascopic appendectomy, no complications. Post-operatively, patient able to ambulate and void freely, pain well controlled. Patient cleared for discharge home. All discharge instructions discussed with patient and in detail, who agree with plan. All questions addressed. Patient will follow up with Dr. Lyman in office in 10 days. Discharge Exam - Head Exam Head Exam: ATRAUMATIC, NORMAL INSPECTION, NORMOCEPHALIC - Eye Exam Eye Exam: EOMI, Normal appearance. absent: Scleral icterus - ENT Exam ENT Exam: Mucous Membranes Moist - Respiratory Exam Respiratory Exam: NORMAL BREATHING PATTERN. absent: Accessory Muscle Use - Cardiovascular Exam Cardiovascular Exam: absent: JVD - GI/Abdominal Exam GI & Abdominal Exam: Soft. absent: Distended, Guarding, Rebound, Rigid Additional comments: mild periincisional tenderness. Surgical incisions clean, dry and intact with dermabond - Extremities Exam Extremities exam: normal inspection - Neurological Exam Neurological exam: Alert, Oriented x3 - Skin Skin Exam: Dry, Intact, Normal Color, Warm Discharge Plan - Follow Up Plan Condition: FAIR Disposition: HOME/ ROUTINE Instructions: Appendicitis in Adults Additional Instructions: Patient cleared for discharge home when able to void freely and ambulate with assistance. - Follow up with Dr. Lyman in 10 days. Call for appointment - Use OTC Tylenol 1000mg PO q6h as needed for pain. (No more than 4000mg in 24hours) - Regular diet - No heavy lifting (>10lbs for 4 weeks) - Okay to shower tomorrow night, 07/18. No soaking. Do not peel Dermabond, allow to come off on its own. - Return to the ED with any concerning symptoms. Referrals: Babatunde Lyman MD [Staff Provider] -
[2018-07-18] MEDS: Oxycodone/Acetaminophen 5/325 mg Tab PO PRN ×2 (00:38→06:38)
[2018-07-18] MEDS: Piperacillin/Tazobact 3.375 GM in Sodium Chloride 100 ML IVPB SCH ×2 (00:39→06:46)
[2018-07-18 08:48] VITALS: BP 143/79; PULSE 84; TEMP 98.1; O2SAT 95
--- NOTE | 2018-07-20 08:15 | OP ---
PROCEDURE DATE: 07/17/2018 PREOPERATIVE DIAGNOSIS: Acute appendicitis. POSTOPERATIVE DIAGNOSIS: Acute appendicitis. PROCEDURE: Laparoscopic Appendectomy SURGEON: Babatunde Lyman MD PROJECTION CAMERA OPERATOR: Valery Cox, PGY-4. INDICATIONS: This is a 48-year-old male who presented with right lower quadrant pain of one day's duration. CT scan was consistent with acute appendicitis, an appendectomy was indicated. DESCRIPTION OF PROCEDURE: The patient was placed on the operating table in the supine position. General anesthesia was induced. Time-out was completed verifying correct patient, procedure, side, positioning, and special equipment prior to beginning the procedure. The abdomen was prepped and draped in the usual sterile fashion. An incision was made in natural skin line above the umbilicus. The fascia was elevated and the Veress needle was inserted. Proper positioning was confirmed by aspiration and 5-mm trocar was then inserted. The abdomen was insufflated with carbon dioxide to a pressure of 15 mmHg. The patient tolerated insufflation well. The laparoscope was inserted and the abdomen was inspected. No injuries were found from initial trocar placement. Under direct visualization, a 5-mm trocar was then placed in the left lower quadrant lateral to the rectus muscle and an additional 12 mm trocar was placed midway between the pubic symphysis and the left lower quadrant incision. Care was taken to avoid any injuries to the bladder or inferior epigastric vessels. The cecum was gently grasped and pulled towards the left upper quadrant with an atraumatic grasper. The small bowel was moved away from the cecum and the base of the appendix was identified. The table was then placed in Trendelenburg position with the right side elevated. The appendix was identified and grasped with an atraumatic grasper. A [place] dissector was then used to gently dissect the appendix away from the cecum and lateral attachments. Endo Jose Miguel was used to mobilize a portion along the white line of [place] to further mobilize the ascending colon and retrieve the appendix from behind the cecum. Blunt dissection was continued to free up the appendix from behind the cecum. Once the appendix was fully mobilized, a window was developed in the mesoappendix as a point between the base of the appendix and the cecum. An endoscopic linear stapler was then used to divide and staple the base of the appendix, was then reloaded and the mesoappendix was similarly divided using a white cartridge vascular staple load. There was some bleeding noted at the staple line and 2 small clips were applied. At this point, hemostasis was achieved. The area was irrigated and there was no further bleeding noted. The appendix was then placed into the endoscopic retrieval bag and removed. The abdomen was then fully inspected and irrigated and hemostasis was assured. All fluid was suctioned out and no other pathology was identified. Secondary trocars were removed under direct vision. No bleeding was noted from trocar removal. The laparoscope was withdrawn and the abdomen was allowed to collapse. The fascia of the 12-mm trocar site was closed with an 0 Vicryl [id number] suture. The skin of all trocar sites was closed with a 5-0 Monocryl subcuticular stitch and Dermabond glue was applied. The patient tolerated the procedure well, was extubated, and taken to the postanesthesia care unit in stable condition. Valery Cox DO Babatunde Lyman MD MTDRafa
== END 2018-07-18 08:40 | disposition home or self-care (01) ==
LOC: C.ER 03:39 → C.9E 08:16 → C.6T 12:38
PROVIDERS: ADMIT Specialist; ATTEND Specialist
DX: K35.80 Unspecified acute appendicitis (principal); I12.9 Hypertensive chronic kidney disease with stage 1 through stage 4 chronic kidney disease, or unspecified chronic kidney disease; E78.5 Hyperlipidemia, unspecified; N18.9 Chronic kidney disease, unspecified; E78.00 Pure hypercholesterolemia, unspecified; Z87.442 Personal history of urinary calculi
CPT/HCPCS: 44970; 74177; 80053; 81001; 83690; 85025; 85610; 85730; 88304; 96361; 96365; 96366; 96375; 99285; C9113; G0378; J1100; J1170; J1885; J2001; J2250; J2405; J2543; J2704; J2710; J3010; J7030; J7050; J7120; Q9967